=== PATIENT | male | born 1935 | race Caucasian/White ===

== ENCOUNTER 2018-02-26 10:53 | Inpatient (IN) ==
[2018-02-26] MEDS ORDERED: Sod Chloride 0.9% Inj 1,000 ML IV.SIG ONE (11:16)
--- NOTE | 2018-02-26 11:29 | ED ---
HPI General Chief complaint: Fall Stated complaint: Weakness Time Seen by Provider: 02/26/18 11:09 History of Present Illness HPI narrative: 82-year-old male with a history of hypertension, atrial fibrillation, hyperlipidemia is brought to the emergency department by EMS for evaluation of down for unknown amount of time. Per EMS report the patient was last seen by his neighbors 1 week ago therefore neighbors called when they were concerned that they did not see him. When EMS arrived today patient was found on the floor of his home covered in feces and urine. Per EMS report the patient was noted to be in A. fib with RVR with heart rate in the 160s. Patient was administered 1.5 L of normal saline and Cardizem 20 mg IV which brought his heart rate down to the 120s. The patient is awake alert and oriented. Patient states that he tripped and fell in his house and could not get up. He is not sure how long he has been down. He is complaining of pain in his hips and left knee. He is not sure if he is on any anticoagulation. He complains of being very thirsty and dehydrated. Denies any chest pain, shortness of breath, nausea, vomiting, numbness or tingling. [facility] No other complaints. Related Data Home Medications Medication Instructions Recorded Confirmed gabapentin 100 mg PO TID 02/26/18 02/26/18 warfarin 5 mg PO DAILY 02/26/18 02/26/18 Allergies Allergy/AdvReac Type Severity Reaction Status Date / Time metoclopramide [From Reglan] Allergy Intermediate Hives Verified 02/26/18 11:12 Review of Systems ROS: all other systems reviewed are negative [facility] Medical History Medical History A-fib (Acute) HBP (high blood pressure) (Acute) Respiration disorder (Acute) Social History Social History Substance History: No History of Abuse Smoking Status: Never smoker How Often Do You Have a Drink Containing Alcohol: Monthly or less Recent Travel in [facility] within the Last 8 Weeks: No Recent Out of Country Travel within the Last 8 Weeks: No Exam Narrative Exam Narrative: GENERAL: Elderly male patient in no acute distress appears dry. SKIN: Warm and dry. Abrasions on back. 10x5cm stage 2 sacral ulcer. Abrasions across left flank and abdomen that have some scab formation. HEAD: Normocephalic and atraumatic. EYES: No injection, drainage, or hyphema noted. PERRLA. EOMI. ENT: No nasal drainage noted. Oropharynx is clear. NECK: Supple and the trachea is midline. No obvious deformities or midline tenderness. CARDIOVASCULAR: Regular rate and rhythm. RESPIRATORY: Breath sounds are equal bilaterally with no accessory muscle use, wheezing, rhonchi, or crackles. GASTROINTESTINAL: Epigastric and periumbilical tenderness to palpation. Abdomen is soft and nondistended. MUSCULOSKELETAL: Tenderness to palpation to left knee, decreased range of motion in the left leg due to pain in the left knee and hip. Decreased range of motion in the right leg due to pain in hip. No obvious deformities, swelling , cyanosis, or ecchymosis is present throughout the upper and lower extremities. Patient has full range of motion without any signs of neurovascular compromise. Distal pulses are 2+ throughout. BACK: Nontender without any obvious deformities, bony point tenderness, or crepitus noted throughout the thoracic and lumbar vertebrae. NEUROLOGICAL: Awake, alert, and oriented. Normal speech. Cranial nerves are grossly intact. Procedures Hemaprompt Stool Procedural Steps Taken: specimen placed in appropriate test area, developer placed on specimen and control areas and controls appropriately positive and negative Hemaprompt Stool Result: negative Course Initial Documented Vital Signs Temperature 98.2 F 02/26/18 11:12 Pulse Rate 123 H 02/26/18 11:12 Respiratory Rate 24 02/26/18 11:12 Blood Pressure 165/92 H 02/26/18 11:12 Pulse Oximetry 96 02/26/18 11:12 Last Documented Vital Signs Temperature 98.0 F 02/26/18 11:45 Pulse Rate 125 H 02/26/18 11:45 Respiratory Rate 22 02/26/18 11:45 Blood Pressure 181/92 H 02/26/18 11:45 Pulse Oximetry 98 02/26/18 11:45 Medical Decision Making MDM Narrative Medical decision making narrative: 82-year-old male brought to the emergency department by EMS for evaluation of found down for unknown amount of time. Patient is afebrile. Blood pressure is stable. Patient is tachycardic with heart rate between 120s-140s A. fib with RVR. EKG shows A. fib with RVR, no acute ST elevations or depressions. Patient already administered 1.5 L of normal saline and Cardizem 20 mg IV by EMS. Another liter of fluid ordered as well as Cardizem 20 mg IV bolus with Cardizem drip. Patient is placed on cardiac telemetry and pulse oximetry monitoring. CT imaging ordered of head, cervical spine, thoracic spine, lumbar spine and abdomen and pelvis. X-ray imaging ordered of the hips and left knee. Campbell catheter placed to monitor urinary output as well as for wound care of sacral ulcer. CBC shows elevated white blood cell count of 23.1, otherwise unremarkable. Coags show INR is 1.3. CMP shows dehydration, creatinine 1.36, BUN 69, GFR 50. Lactic acid is 2.1. CPK is elevated at 931. Troponin is slightly elevated at 0.04 and CK-MB is also elevated. Likely due to dehydration. Urinalysis shows rare bacteria, otherwise unremarkable. Chest x-ray negative. Bilateral hip x-rays are negative for any acute abnormalities. Left knee x-ray is negative for any acute abnormalities. Head CT is negative for any acute abnormalities, senescent changes with moderate periventricular ischemic white matter demyelination noted. CT of the cervical spine shows multilevel degenerative changes but no acute abnormalities. CT of the thoracic spine shows kyphosis, degenerative changes and old compression deformities at T7-L1. CT of the abdomen and pelvis is negative for traumatic injury, there is a subcentimeter focal hypodensity in the anterior inferior spleen which does not have the typical appearance for acute splenic injury but is too small to fully characterize. Remote left inferior pubic ramus fracture. Patient has remained stable while here in the emergency department. His heart rate has improved to 90s, blood pressure is stable. Patient is administered Zosyn and vancomycin IV to cover for sepsis with skin source likely from sacral ulcer. Patient will be admitted for sepsis, A. fib with RVR, rhabdomyolysis and sacral ulcer. I spoke with Dr. Rockwell [facility] who accepts patient for admission. Medical Screen Exam Complete: Yes Emergency Medical Condition: Yes Differential Diagnosis Differential Diagnosis: Dehydration versus rhabdomyolysis versus acute kidney injury versus electrolyte abnormality versus atrial fibrillation with RVR versus sepsis versus UTI versus fracture Lab Data Result diagrams: 02/26/18 11:40 02/26/18 11:40 Lab Results 02/26/18 02/26/18 02/26/18 Range/Units 11:40 11:40 11:40 WBC 23.1 H (4.0-11.0) th/mm3 RBC 4.76 (4.50-5.90) mil/mm3 Hgb 15.4 (13.0-17.0) gm/dL Hct 46.0 (39.0-51.0) % MCV 96.5 (80.0-100.0) fL MCH 32.3 (27.0-34.0) pg MCHC 33.4 (32.0-36.0) % RDW 13.9 (11.6-17.2) % Plt Count 229 (150-450) th/mm3 MPV 8.5 (7.0-11.0) fL Prelim Diff (Auto) Slide review pending Neut % (Auto) 89.5 H (16.0-70.0) % Lymph % (Auto) 3.8 L (9.0-44.0) % Bradford % (Auto) 6.5 (0.0-8.0) % Eos % (Auto) 0.0 (0.0-4.0) % Baso % (Auto) 0.2 (0.0-2.0) % Neut # (Auto) 20.7 H (1.8-7.7) th/mm3 Lymph # (Auto) 0.9 L (1.0-4.8) th/mm3 Bradford # (Auto) 1.5 H (0.0-0.9) th/mm3 Eos # (Auto) 0.0 (0.0-0.4) th/mm3 Baso # (Auto) 0.0 (0.0-0.2) th/mm3 WBC Differential Manual diff final Seg Neuts % (Manual) 83 H (16-70) % Band Neuts % (Manual) 7 H (0-6) % Lymphocytes % (Manual) 5 L (9-44) % Monocytes % (Manual) 4 (0-8) % Myelocytes % (Man) 1 H (0-0) % Abs Neuts (Manual) 21.0 H (1.8-7.7) th/mm3 Differential Comment . Platelet Estimate Normal (Normal) Platelet Morphology Normal (Normal) RBC Morphology Normal (Normal) PT (9.8-11.6) sec INR Ratio APTT (24.3-30.1) sec Sodium 152 H (136-145) meq/L Potassium 5.1 (3.5-5.1) meq/L Chloride 117 H (98-107) meq/L Carbon Dioxide 23.8 (21.0-32.0) meq/L Anion Gap 11 (5-15) meq/L BUN 69 H (7-18) mg/dL Creatinine 1.36 H (0.60-1.30) mg/dL Estimated GFR 50 L (>89) mL/min Random Glucose 135 H (74-106) mg/dL Lactic Acid (0.4-2.0) mmol/L Calcium 8.0 L (8.5-10.1) mg/dL Total Bilirubin 0.9 (0.2-1.0) mg/dL AST 58 H (15-37) U/L ALT 47 (12-78) U/L Alkaline Phosphatase 89 (45-117) U/L Total Creatine Kinase 931 H (39-308) U/L CK-MB (CK-2) 18.4 H (0.5-3.6) ng/mL CK-MB (CK-2) % 2.0 (0.0-4.0) % Troponin I 0.04 (0.02-0.05) ng/mL Total Protein 6.4 (6.4-8.2) g/dL Albumin 2.5 L (3.4-5.0) g/dL Urine Color (Yellw/Straw) Urine Clarity (Clear) Urine pH (5.0-8.5) Ur Specific [place] (1.002-1.035) Urine Protein (Neg-Trace) mg/dL Urine Glucose (UA) (Negative) mg/dL Urine Ketones (Negative) mg/dL Urine Occult Blood (Negative) Urine Nitrate (Negative) Urine Bilirubin (Negative) Urine Urobilinogen (Less than 2) mg/dL Ur Leukocyte Esterase (Negative) Urine RBC (0-3) /hpf Urine Bacteria (None) /hpf Micro UA Comment Ur Microscopic Review Urine Culture Comments 02/26/18 02/26/18 02/26/18 Range/Units 11:40 11:40 11:40 WBC (4.0-11.0) th/mm3 RBC (4.50-5.90) mil/mm3 Hgb (13.0-17.0) gm/dL Hct (39.0-51.0) % MCV (80.0-100.0) fL MCH (27.0-34.0) pg MCHC (32.0-36.0) % RDW (11.6-17.2) % Plt Count (150-450) th/mm3 MPV (7.0-11.0) fL Prelim Diff (Auto) Neut % (Auto) (16.0-70.0) % Lymph % (Auto) (9.0-44.0) % Bradford % (Auto) (0.0-8.0) % Eos % (Auto) (0.0-4.0) % Baso % (Auto) (0.0-2.0) % Neut # (Auto) (1.8-7.7) th/mm3 Lymph # (Auto) (1.0-4.8) th/mm3 Bradford # (Auto) (0.0-0.9) th/mm3 Eos # (Auto) (0.0-0.4) th/mm3 Baso # (Auto) (0.0-0.2) th/mm3 WBC Differential Seg Neuts % (Manual) (16-70) % Band Neuts % (Manual) (0-6) % Lymphocytes % (Manual) (9-44) % Monocytes % (Manual) (0-8) % Myelocytes % (Man) (0-0) % Abs Neuts (Manual) (1.8-7.7) th/mm3 Differential Comment Platelet Estimate (Normal) Platelet Morphology (Normal) RBC Morphology (Normal) PT 13.0 H (9.8-11.6) sec INR 1.3 Ratio APTT 20.5 L (24.3-30.1) sec Sodium (136-145) meq/L Potassium (3.5-5.1) meq/L Chloride (98-107) meq/L Carbon Dioxide (21.0-32.0) meq/L Anion Gap (5-15) meq/L BUN (7-18) mg/dL Creatinine (0.60-1.30) mg/dL Estimated GFR (>89) mL/min Random Glucose (74-106) mg/dL Lactic Acid 2.1 H (0.4-2.0) mmol/L Calcium (8.5-10.1) mg/dL Total Bilirubin (0.2-1.0) mg/dL AST (15-37) U/L ALT (12-78) U/L Alkaline Phosphatase (45-117) U/L Total Creatine Kinase (39-308) U/L CK-MB (CK-2) (0.5-3.6) ng/mL CK-MB (CK-2) % (0.0-4.0) % Troponin I (0.02-0.05) ng/mL Total Protein (6.4-8.2) g/dL Albumin (3.4-5.0) g/dL Urine Color Yellow (Yellw/Straw) Urine Clarity Clear (Clear) Urine pH 6.0 (5.0-8.5) Ur Specific [place] 1.010 (1.002-1.035) Urine Protein Negative (Neg-Trace) mg/dL Urine Glucose (UA) Negative (Negative) mg/dL Urine Ketones Negative (Negative) mg/dL Urine Occult Blood Negative (Negative) Urine Nitrate Negative (Negative) Urine Bilirubin Negative (Negative) Urine Urobilinogen Less than 2 (Less than 2) mg/dL Ur Leukocyte Esterase Negative (Negative) Urine RBC 1 (0-3) /hpf Urine Bacteria Rare H (None) /hpf Micro UA Comment Culture not ind Ur Microscopic Review Not Reportable Urine Culture Comments Culture not ind Imaging Data Radiologist's impression: Cervical Spine CT 02/26/18 11:16 CONCLUSION: 1. Multilevel degenerative spondylosis of the cervical spine with exaggerated kyphosis and multilevel prominent facet hypertrophy. 2. Sagittal alignment is maintained however there is increased anterior disc space at C4-5, C5-6 and C6-7 which may be related to increased motion due to degenerative endplate osteophytes at C3-4 and facet arthrosis. 3. No acute fracture. Chest X-Ray 02/26/18 11:16 CONCLUSION: 1. Senescent changes without acute abnormality. Head CT 02/26/18 11:16 CONCLUSION: 1. Senescent changes with moderate periventricular ischemic white matter demyelination. 2. No acute intracranial abnormality. . Abdomen/Pelvis CT 02/26/18 11:22 CONCLUSION: 1. No CT evidence for acute traumatic injury in the abdomen or pelvis. 2. Subcentimeter focal hypodensity in the anterior inferior spleen which does not have the typical appearance for acute splenic injury but is too small to fully characterize. 3. Remote left inferior pubic ramus fracture with compression screw fixation of the right femoral neck and stable moderate superior endplate fracture of T12. Hip X-Ray 02/26/18 11:22 CONCLUSION: 1. No acute fracture or dislocation. Hip X-Ray 02/26/18 11:22 CONCLUSION: 1. No acute fracture or dislocation. 2. Intact fixation hardware, as above. Knee X-Ray 02/26/18 11:22 CONCLUSION: 1. No acute fracture. Lumbar Spine CT 02/26/18 11:22 CONCLUSION: 1. No acute compression fracture or subluxation. 2. Moderate compression fracture at T12. 3. Osteopenia. Thoracic Spine CT 02/26/18 11:22 CONCLUSION: 1. Kyphosis and diffuse degenerative changes. 2. Old compression deformities at T7 and L1. 3. Osteopenia. Discharge Plan Discharge Disposition Patient Disposition: 30 Still Patient Discharge Details Diagnosis: Sepsis, Atrial fibrillation with RVR, Rhabdomyolysis, Decubitus ulcer of sacral area Physicians Team ED Provider: Jesus Reid ED Midlevel Provider: Anita Pacheco Primary Care Provider: UNKNOWN, Rxs /Orders / Referrals /Forms Prescriptions: No Action warfarin 5 mg Tablet 5 mg PO DAILY RF: 0 gabapentin 100 mg Capsule 100 mg PO TID RF: 0 Status ED Status: With Doctor
[2018-02-26 12:27] LABS: Baso % (Auto) 0.2 % (0.0-2.0); Hemoglobin 15.4 gm/dL (13.0-17.0); Lymph # (Auto) 0.9 th/mm3 (1.0-4.8); Lymph % (Auto) 3.8 % (9.0-44.0); Mean Corpuscular HGB Conc 33.4 % (32.0-36.0); Mean Corpuscular Hemoglobin 32.3 pg (27.0-34.0); Mean Corpuscular Volume 96.5 fL (80.0-100.0); Mean Platelet Volume 8.5 fL (7.0-11.0); Mono # (Auto) 1.5 th/mm3 (0.0-0.9); Mono % (Auto) 6.5 % (0.0-8.0); Neut # (Auto) 20.7 th/mm3 (1.8-7.7); Neut % (Auto) 89.5 % (16.0-70.0); Platelet Count 229 th/mm3 (150-450); Red Blood Count 4.76 mil/mm3 (4.50-5.90); Red Cell Distribution Width 13.9 % (11.6-17.2); White Blood Count 23.1 th/mm3 (4.0-11.0)
[2018-02-26 12:35] LABS: Activated Partial Thrombo Time 20.5 sec (24.3-30.1); INR 1.3 Ratio
[2018-02-26] MEDS: dilTIAZem Inj 125 MG in Sodium Chlor 0.9% Inj 100 ML IV.CONT PRN ×2 (12:38→22:26)
[2018-02-26 12:40] LABS: Alkaline Phosphatase 89 U/L (45-117); Total Protein 6.4 g/dL (6.4-8.2); Troponin I 0.04 ng/mL (0.02-0.05)
[2018-02-26 12:41] LABS: Alanine Aminotransferase 47 U/L (12-78); Albumin 2.5 g/dL (3.4-5.0); Anion Gap 11 meq/L (5-15); Aspartate Aminotransferase 58 U/L (15-37); Blood Urea Nitrogen 69 mg/dL (7-18); Carbon Dioxide 23.8 meq/L (21.0-32.0); Chloride 117 meq/L (98-107); Glomerular Filtration Rate 50 mL/min (>89); Glucose,Random 135 mg/dL (74-106); Sodium 152 meq/L (136-145)
[2018-02-26 12:42] LABS: Potassium 5.1 meq/L (3.5-5.1)
--- NOTE | 2018-02-26 12:55 | XR ---
EXAM DATE: 02/26/2018 11:22 AM EDT AGE/SEX: 82 years / Male INDICATIONS: Fall, left hip pain. CLINICAL DATA: This is the patient's initial encounter. Patient reports that signs and symptoms have been present for 1 day and indicates a pain score of 3/10. MEDICAL/SURGICAL HISTORY: None. . right hip COMPARISON: [facility], CT ABDOMEN AND PELVIS W/O CONTRAST, 11/23/2014. . FINDINGS: Right hip femoral compression screw and intramedullary esteban fixation. Visualized portions of the hardw are appears grossly intact. Bony structures are intact and in normal alignment. Joints are intact wi thout dislocation or significant arthropathy. Osseous density is normal. Soft tissues are unremarka ble. No radiopaque foreign bodies seen. CONCLUSION: 1. No acute fracture or dislocation. Electronically signed by: Duran Correa MD 02/26/2018 12:54 PM EDT
--- NOTE | 2018-02-26 12:56 | XR ---
EXAM DATE: 02/26/2018 11:22 AM EDT AGE/SEX: 82 years / Male INDICATIONS: Fall, right hip pain. CLINICAL DATA: This is the patient's initial encounter. Patient reports that signs and symptoms have been present for 1 day and indicates a pain score of 2/10. MEDICAL/SURGICAL HISTORY: None. . right hip COMPARISON: [facility], CT ABDOMEN AND PELVIS W/O CONTRAST, 11/23/2014. . FINDINGS: Right femoral intramedullary esteban and compression screw fixation with bony remodeling in the intertroc hanteric region. There is also [id number] degenerative osteoarthritis about the hip joint. Osse ous structures otherwise appear intact without acute bony fracture. Hardware appears intact. Soft tis sues are unremarkable. No radiopaque foreign bodies. CONCLUSION: 1. No acute fracture or dislocation. 2. Intact fixation hardware, as above. Electronically signed by: Duran Correa MD 02/26/2018 12:55 PM EDT
--- NOTE | 2018-02-26 12:57 | XR ---
EXAM DATE: 02/26/2018 11:16 AM EDT AGE/SEX: 82 years / Male INDICATIONS: Fall, short of breath. CLINICAL DATA: This is the patient's initial encounter. Patient reports that signs and symptoms have been present for 1 day and indicates a pain score of 0/10. MEDICAL/SURGICAL HISTORY: None. None. COMPARISON: . FINDINGS: Mild diffuse interstitial prominence and senescent changes. Cardiac silhouette is mildly enlarged. Os seous structures are grossly intact. CONCLUSION: 1. Senescent changes without acute abnormality. Electronically signed by: Duran Correa MD 02/26/2018 12:56 PM EDT
--- NOTE | 2018-02-26 12:58 | XR ---
EXAM DATE: 02/26/2018 11:22 AM EDT AGE/SEX: 82 years / Male INDICATIONS: Fall, left knee pain. CLINICAL DATA: This is the patient's initial encounter. Patient reports that signs and symptoms have been present for 1 day and indicates a pain score of 3/10. MEDICAL/SURGICAL HISTORY: None. . right hip COMPARISON: No prior exams available for comparison. FINDINGS: Bony structures are intact and in normal alignment. Joints are intact without dislocation or signific ant arthropathy. Osseous density is normal. Soft tissues are unremarkable. Arterial calcifications. No radiopaque foreign bodies seen. CONCLUSION: 1. No acute fracture. Electronically signed by: Duran Correa MD 02/26/2018 12:57 PM EDT
[2018-02-26 12:59] LABS: Bacteria,Urine Rare /hpf; Bilirubin,Urine Negative (Negative); Clarity,Urine Clear (Clear); Color,Urine Yellow (Yellw/Straw); Glucose,Urine (UA) Negative (Negative); Leukocyte Esterase,Urine Negative (Negative); Nitrite,Urine Negative (Negative)
[2018-02-26 13:01] LABS: Creatine Kinase MB 18.4 ng/mL (0.5-3.6)
[2018-02-26 13:19] LABS: Lymphocytes 5 % (9-44); Monocytes 4 % (0-8); Myelocytes 1 % (0-0); Platelet Estimate Normal (Normal); Platelet Morphology Normal (Normal); RBC Morphology Normal (Normal)
[2018-02-26] MEDS ORDERED: Vancomycin Inj 1,000 MG in Sodium Chlor 0.9% Inj 250 ML IV.SIG STA (13:48)
[2018-02-26] MEDS ORDERED: Piperacil/Tazo 4.5 GM Premix 4.5 GM/100 ML BAG IV.SIG STA (13:48)
--- NOTE | 2018-02-26 13:54 | CT ---
EXAM DATE: 02/26/2018 1:18 PM EDT AGE/SEX: 82 years / Male INDICATIONS: Trauma, patient fell found on floor. CLINICAL DATA: This is the patient's initial encounter. Patient reports that signs and symptoms have been present for 1 day and indicates a pain score of 4/10. MEDICAL/SURGICAL HISTORY: Hypertension. A-fib None. RADIATION DOSE: 56.66 CTDI (mGy) COMPARISON: No prior exams available for comparison. TECHNIQUE: CT of the head without contrast. Using automated exposure control and adjustment of the mA and/or kV according to patient size, radiation dose was kept as low as reasonably achievable to ob tain optimal diagnostic quality images. DICOM format image data is available electronically for revi ew and comparison. FINDINGS: Cerebrum: Moderate diffuse cerebral atrophy. The ventricles are normal for degree of atrophy. Modera te periventricular white matter hypodensities. No evidence of midline shift, mass lesion, hemorrhage or acute infarction. No extraaxial fluid collections are seen. Posterior Fossa: The cerebellum and brainstem are intact. The 4th ventricle is midline. The cerebe llopontine angle is unremarkable. Extracranial: The visualized portion of the orbits is intact. Skull: The calvaria is intact. No evidence of skull fracture. CONCLUSION: 1. Senescent changes with moderate periventricular ischemic white matter demyelination. 2. No acute intracranial abnormality. . Electronically signed by: Duran Correa MD 02/26/2018 1:53 PM EDT
--- NOTE | 2018-02-26 14:09 | CT ---
EXAM DATE: 02/26/2018 1:18 PM EDT AGE/SEX: 82 years / Male INDICATIONS: Trauma, patient fell found on floor. CLINICAL DATA: This is the patient's initial encounter. Patient reports that signs and symptoms have been present for 1 day and indicates a pain score of 7/10. MEDICAL/SURGICAL HISTORY: Hypertension. A-fib None. RADIATION DOSE: 18.76 CTDI (mGy) COMPARISON: [facility], XR SPINE LUMBAR (MIN 4 VIEWS), 11/23/2014. . TECHNIQUE: Contiguous axial images were obtained using helical multirow detector technique. The vol umetric data was post-processed with multiplanar reconstruction in oblique axial, sagittal, and coron al planes. Using automated exposure control and adjustment of the mA and/or kV according to patient s ize, radiation dose was kept as low as reasonably achievable to obtain optimal diagnostic quality elizabeth ges. DICOM format image data is available electronically for review and comparison. FINDINGS: OSSEOUS STRUCTURES: Vertebral body heights are maintained. Osseous structures are intact without evid ence for acute bony fracture. Dens is intact. ALIGNMENT: Exaggerated cervical lordosis with increased anterior disc space at C4-5, C5-6 and C6-7. T here are bridging endplate osteophytes at C3-4 right resulting in increased adjacent level motion. Sa gittal alignment is maintained when correcting for slight dextroscoliosis of the cervical spine. Ther e is a normal C1-2 relationship. Facets are normally aligned. SOFT TISSUES: There is no significant prevertebral soft tissue hematoma. No significant cervical pillo nopathy or gross mass. The thyroid appears unremarkable. Visualized lung apices are clear without pn eumothorax. ADDITIONAL FINDINGS: Multilevel degenerative spondylosis with advanced facet hypertrophy on the left at C4-5 and on the right at C6-7. Bony central canal is patent. Bony neural foramina are patent. CONCLUSION: 1. Multilevel degenerative spondylosis of the cervical spine with exaggerated kyphosis and multileve l prominent facet hypertrophy. 2. Sagittal alignment is maintained however there is increased anterior disc space at C4-5, C5-6 and C6-7 which may be related to increased motion due to degenerative endplate osteophytes at C3-4 and f acet arthrosis. 3. No acute fracture. Electronically signed by: Duran Correa MD 02/26/2018 2:08 PM EDT
--- NOTE | 2018-02-26 14:50 | CT ---
EXAM DATE: 02/26/2018 1:18 PM EDT AGE/SEX: 82 years / Male INDICATIONS: Trauma, patient fell found on floor. CLINICAL DATA: This is the patient's initial encounter. Patient reports that signs and symptoms have been present for 1 day and indicates a pain score of 7/10. MEDICAL/SURGICAL HISTORY: Hypertension. A-fib None. RADIATION DOSE: 35.62 CTDI (mGy) ; Combined studies COMPARISON: [facility] [place] CERVICAL SPINE W/O CONTRAST, 02/26/2018. . TECHNIQUE: Contiguous axial images were acquired using a multirow detector CT scanner without contra st. Multiplanar reconstruction in the sagittal and coronal planes was performed. Using automated exp osure control and adjustment of the mA and/or kV according to patient size, radiation dose was kept a s low as reasonably achievable to obtain optimal diagnostic quality images. DICOM format image data is available electronically for review and comparison. FINDINGS: Vertebrae: Kyphosis and degenerative changes thoracic spine. Severe compression deformity at T7 and moderate compression deformity at L1. Alignment: Normal. No subluxation. T1 - T2: Normal. T2 - T3: The thecal sac has a normal diameter. No evidence of disc bulge or protrusion. T3 - T4: The thecal sac has a normal diameter. No evidence of disc bulge or protrusion. T4 - T5: The thecal sac has a normal diameter. No evidence of disc bulge or protrusion. T5 - T6: The thecal sac has a normal diameter. No evidence of disc bulge or protrusion. T6 - T7: The thecal sac has a normal diameter. No evidence of disc bulge or protrusion. T7 - T8: The thecal sac has a normal diameter. No evidence of disc bulge or protrusion. T8 - T9: The thecal sac has a normal diameter. No evidence of disc bulge or protrusion. T9 - T10: The thecal sac has a normal diameter. No evidence of disc bulge or protrusion. T10 - T11: The thecal sac has a normal diameter. No evidence of disc bulge or protrusion. T11 - T12: The thecal sac has a normal diameter. No evidence of disc bulge or protrusion. T12 - L1: The thecal sac has a normal diameter. No evidence of disc bulge or protrusion. CONCLUSION: 1. Kyphosis and diffuse degenerative changes. 2. Old compression deformities at T7 and L1. 3. Osteopenia. Electronically signed by: Adam Reddy MD 02/26/2018 2:49 PM EDT
--- NOTE | 2018-02-26 14:51 | CT ---
EXAM DATE: 02/26/2018 1:18 PM EDT AGE/SEX: 82 years / Male INDICATIONS: Trauma, patient fell, found on floor. CLINICAL DATA: This is the patient's initial encounter. Patient reports that signs and symptoms have been present for 1 day and indicates a pain score of 7/10. MEDICAL/SURGICAL HISTORY: Hypertension. A-fib None. ORAL CONTRAST: No oral contrast ingested. RADIATION DOSE: 12.24 CTDI (mGy) COMPARISON: [facility], CT ABDOMEN AND PELVIS W/O CONTRAST, 11/23/2014. . TECHNIQUE: Multiple contiguous axial images were obtained through the abdomen and pelvis following b olus infusion of 68 ml Omnipaque 350 (iohexol) nonionic water-soluble contrast as a single exam dos e. No oral contrast ingested. Using automated exposure control and adjustment of the mA and/or kV ac cording to patient size, radiation dose was kept as low as reasonably achievable to obtain optimal di agnostic quality images. DICOM format image data is available electronically for review and comparis on. FINDINGS: LOWER LUNGS: Minimal bibasal atelectasis. LIVER: Homogeneous enhancement of the liver without focal mass or intrahepatic ductal dilatation. Mu ltiple gallstones in the gallbladder which otherwise appears unremarkable by CT. SPLEEN: Subcentimeter focal hypodensity in the anterior inferior spleen. This does not have the typi ezekiel appearance for acute splenic injury. PANCREAS: Unremarkable without mass or calcification. KIDNEYS: Kidneys demonstrate symmetrical enhancement without radiopaque renal calculi or hydronephro sis. Minimal perinephric stranding without perinephric fluid collection or evidence for acute renal i njury. ADRENAL GLANDS: Unremarkable. AORTA: Diffusely atherosclerotic but nonaneurysmal. BOWEL/MESENTERY: Small to moderate amount of stool in the rectum. Bowel otherwise appears grossly un remarkable. No dilated bowel loops to suggest obstruction. No free fluid or drainable fluid collectio ns. No free air or pneumatosis. ABDOMINAL WALL: Intact. RETROPERITONEUM: No evidence of adenopathy in the retrocrural, para-aortic, or deep pelvic regions. BLADDER: Decompressed secondary to Campbell catheter. REPRODUCTIVE: Nonspecific prostate enlargement. BONY STRUCTURES: Multilevel degenerative spondylosis of the lower lumbar spine healed left pubic ricky us fractures. Compression screw and intramedullary esteban fixation of the right femur with remodeling in the intertrochanteric region. Moderate superior endplate compression deformity of T12. This appears unchanged from prior exam. CONCLUSION: 1. No CT evidence for acute traumatic injury in the abdomen or pelvis. 2. Subcentimeter focal hypodensity in the anterior inferior spleen which does not have the typical a ppearance for acute splenic injury but is too small to fully characterize. 3. Remote left inferior pubic ramus fracture with compression screw fixation of the right femoral ne ck and stable moderate superior endplate fracture of T12. Electronically signed by: Duran Correa MD 02/26/2018 2:50 PM EDT
--- NOTE | 2018-02-26 15:13 | CT ---
EXAM DATE: 02/26/2018 11:22 AM EDT AGE/SEX: 82 years / Male INDICATIONS: Trauma, patient fell, found on floor. CLINICAL DATA: This is the patient's initial encounter. Patient reports that signs and symptoms have been present for 1 day and indicates a pain score of 7/10. MEDICAL/SURGICAL HISTORY: Hypertension. A-fib None. RADIATION DOSE: 36.62 CTDI (mGy) ; Combined studies COMPARISON: [facility] [place] W/O [place]AST, 02/26/2018. [facility] [place]ORACIC [place] W/O CONTR AST, 02/26/2018. . TECHNIQUE: Contiguous axial images were acquired with a multirow detector CT scanner without contras t. Multiplanar reconstructions in the sagittal and coronal plane were also performed. Using automate d exposure control and adjustment of the mA and/or kV according to patient size, radiation dose was k ept as low as reasonably achievable to obtain optimal diagnostic quality images. DICOM format image data is available electronically for review and comparison. FINDINGS: Vertebrae: Normal vertebral body height. There is compression fracture at T12 which is old. Schmorl node deformity along the inferior endplate at L2. Degenerative changes lower facets. Alignment: Normal. No subluxation. T12-L1: The thecal sac has a normal diameter. No evidence of disc bulge or protrusion. The neural foramina are patent bilaterally. L1-L2: The thecal sac has a normal diameter. No evidence of disc bulge or protrusion. The neural f oramina are patent bilaterally. L2-L3: The thecal sac has a normal diameter. No evidence of disc bulge or protrusion. The neural f oramina are patent bilaterally. L3-L4: The thecal sac has a normal diameter. No evidence of disc bulge or protrusion. The neural f oramina are patent bilaterally. L4-L5: The thecal sac has a normal diameter. No evidence of disc bulge or protrusion. The neural f oramina are patent bilaterally. L5-S1: The thecal sac has a normal diameter. No evidence of disc bulge or protrusion. The neural f oramina are patent bilaterally. CONCLUSION: 1. No acute compression fracture or subluxation. 2. Moderate compression fracture at T12. 3. Osteopenia. Electronically signed by: Adam Reddy MD 02/26/2018 3:12 PM EDT
[2018-02-26] MEDS ORDERED: Bisacodyl 10 MG Supp RECTAL PRN (15:33)
[2018-02-26] MEDS: Dextrose 5% in Water Inj 1,000 ML IV.CONT SCH (16:21)
--- NOTE | 2018-02-26 17:21 | P.HPIM ---
History of Present Illness Service: [facility] Hospitalist Primary Care Physician: UNKNOWN History of Present Illness: 82 Y/O male with a history of HTN, hypertension, mild dementia per family brought in by EMS after the patient was found down for unknown amount of time. Neighbors reports they have not seen him in a week. His daughter at bedside reports she talked to him about ten days ago. The patient reports that he remembered tripping and falling but he could not get up. He is unsure of the timing and his memory is vague but he thought he was down for three weeks. Patient was found in urine and feces. Currently he reports feeling drained with no energy. He has pain all over but no other specific complaint. Multiple imaging by ED staff did not reveal any acute fracture. He denies chest pain or shortness of breath. Patient was found to be in Afib with RVR. He has been given Cardizem IV by EMS and was started on a heparin drip in the ED. Inpatient Certification: I certify that the inpatient services were ordered in accordance with Medicare regulations governing the order. This includes certification that hospital inpatient services are reasonable and necessary and in the case of services not specified as inpatient-only under 42 CFR 419.22(n), that they are appropriately provided as inpatient services in accordance to with the 2-midnight benchmark under 43 CFR 412.3(e) Estimated Total Length of Stay (Days): 3 Plans for Post Hospital Care: Not yet determined Review of Systems All other systems reviewed negative except as stated in HPI PMFSH - History History Provided By: Patient - Medical History Medical History: Medical History (Last Reviewed 02/26/18 @ 22:06 by César Rockwell MD) A-fib HBP (high blood pressure) Respiration disorder - Surgical History Surgical History: Surgical History (Last Updated 02/26/18 @ 22:07 by César Rockwell MD) S/P skin cancer resection - Family History Family History: Family History (Last Updated 02/26/18 @ 22:07 by César Rockwell MD) Other Family history non-contributory - Tobacco History Smoking Status: Never smoker - Alcohol History How Often Do You Have a Drink Containing Alcohol: Monthly or less - Substance Use History Substance History: No History of Abuse - Travel History Recent Travel in the [place] Within the Last 8 Weeks: No Recent Travel Out of the Country Within the Last 8 Weeks: No - Immunization History Tetanus Immunization: >5 Years Medications and Allergies Active Medications: Active Medications Al Hydroxide/Mg Hydroxide (Milk Of Magnesia Liq) 30 ml PO Q12H PRN PRN Reason: Mild Constipation Bisacodyl (Dulcolax Supp) 10 mg RECTAL DAILY PRN PRN Reason: SEVERE CONSITIPATION Diltiazem HCl (Cardizem) 30 mg PO QID LORNA Diltiazem HCl 125 mg/ Sodium (Chloride) 125 mls @ 5 mls/hr IV.CONT TITRATE PRN ; Protocol PRN Reason: Per Protocol Last Titration: 02/26/18 14:17 Dose: 15 mg/hr, 15 mls/hr Dextrose (D5w Inj) 1,000 mls @ 100 mls/hr IV.CONT .Q10H LORNA Last Admin: 02/26/18 16:21 Dose: 100 mls/hr Lactulose (Lactulose Liq) 30 ml PO DAILY PRN PRN Reason: SEVERE CONSITIPATION Sennosides (Senokot) 17.2 mg PO Q12H PRN PRN Reason: Moderate Constipation Sodium Chloride (Ns Flush) 2 ml IV.FLUSH PRN PRN PRN Reason: FLUSH AFTER USING IV ACCESS Last Admin: 02/26/18 11:35 Dose: 2 ml Sodium Chloride (Ns Flush) 2 ml IV.FLUSH BID [facility] Allergies Allergy/AdvReac Type Severity Reaction Status Date / Time metoclopramide [From Reglan] Allergy Intermediate Hives Verified 02/26/18 11:12 Home Medications Medication Instructions Recorded Confirmed Type gabapentin 100 mg PO TID 02/26/18 02/26/18 History warfarin 5 mg PO DAILY 02/26/18 02/26/18 History Exam Vital signs: Vital Signs 02/26/18 11:12 02/26/18 11:17 02/26/18 11:45 Temperature 98.2 F 98.0 F Pulse Rate 123 H 122 H 125 H Respiratory Rate 24 22 Blood Pressure 165/92 H 181/92 H Pulse Oximetry 96 97 98 02/26/18 14:25 02/26/18 14:30 02/26/18 15:00 Temperature Pulse Rate 108 H 104 H 112 H Respiratory Rate 24 22 22 Blood Pressure 129/68 138/66 Pulse Oximetry 02/26/18 15:30 02/26/18 16:00 Temperature Pulse Rate 106 H 100 H Respiratory Rate 24 25 H Blood Pressure 145/79 H 135/75 Pulse Oximetry Intake & Output 02/25/18 02/26/18 02/26/18 18:59 06:59 18:59 Intake Total 1350 / 1350 Output Total 800 / 800 Balance 550 / 550 Weight 90.718 kg Intake: IV 1350 / 1350 Zosyn 4.5 GM Premix 4.5 gm In 100 / 100 100 ml @ 200 mls/hr IV.SIG STAT STA Rx#:[id number] NS Inj 1,000 ML @ Wide Open IV. 1000 / 1000 SIG BOLUS ONE Rx#:[id number] Vancomycin Inj 1,000 MG In NS 250 / 250 Inj 250 ML @ 250 mls/hr IV.SIG STAT STA Rx#:[id number] Output: Urine Amount (Catheter) 800 / 800 Indwelling Urethral Catheter 800 / 800 Narrative: GENERAL: Elderly and frail male. Profoundly weak. SKIN: Multiple areas of ecchymoses selam upper extremities. HEAD: Atraumatic. Normocephalic. EYES: Pupils equal and round. No scleral icterus. No injection or drainage. ENT: No nasal bleeding or discharge. Mucous membranes pink and moist. NECK: Trachea midline. No JVD. CARDIOVASCULAR: Rate in the 90's and irregular rhythm. RESPIRATORY: No accessory muscle use. Clear to auscultation. Breath sounds equal bilaterally. GASTROINTESTINAL: Abdomen soft, non-tender, nondistended. Hepatic and splenic margins not palpable. MUSCULOSKELETAL: Extremities without clubbing, cyanosis, or edema. No obvious deformities. NEUROLOGICAL: Awake and alert. No obvious cranial nerve deficits. Profound generalized weakness. PSYCHIATRIC: Appropriate mood and affect; insight and judgment normal. Results - Labs CBC & Chem 7: 02/26/18 11:40 02/26/18 11:40 Labs: Short CBC 02/26/18 Range/Units 11:40 WBC 23.1 H (4.0-11.0) th/mm3 Hgb 15.4 (13.0-17.0) gm/dL Hct 46.0 (39.0-51.0) % Plt Count 229 (150-450) th/mm3 [facility] 02/26/18 11:40 Sodium 152 H Potassium 5.1 Chloride 117 H Carbon Dioxide 23.8 BUN 69 H Creatinine 1.36 H Calcium 8.0 L Cardiac Enzymes 02/26/18 02/26/18 Range/Units 11:40 11:40 Total Creatine Kinase 931 H (39-308) U/L CK-MB (CK-2) 18.4 H (0.5-3.6) ng/mL Troponin I 0.04 (0.02-0.05) ng/mL Liver Function 02/26/18 Range/Units 11:40 Total Bilirubin 0.9 (0.2-1.0) mg/dL AST 58 H (15-37) U/L ALT 47 (12-78) U/L Alkaline Phosphatase 89 (45-117) U/L Albumin 2.5 L (3.4-5.0) g/dL Urine 02/26/18 Range/Units 11:40 Urine Color Yellow (Yellw/Straw) Urine Clarity Clear (Clear) Urine pH 6.0 (5.0-8.5) Ur Specific Goff 1.010 (1.002-1.035) Urine Protein Negative (Neg-Trace) mg/dL Urine Glucose (UA) Negative (Negative) mg/dL - Imaging Impressions Cervical Spine CT 02/26/18 11:16 CONCLUSION: 1. Multilevel degenerative spondylosis of the cervical spine with exaggerated kyphosis and multilevel prominent facet hypertrophy. 2. Sagittal alignment is maintained however there is increased anterior disc space at C4-5, C5-6 and C6-7 which may be related to increased motion due to degenerative endplate osteophytes at C3-4 and facet arthrosis. 3. No acute fracture. Chest X-Ray 02/26/18 11:16 CONCLUSION: 1. Senescent changes without acute abnormality. Head CT 02/26/18 11:16 CONCLUSION: 1. Senescent changes with moderate periventricular ischemic white matter demyelination. 2. No acute intracranial abnormality. . Abdomen/Pelvis CT 02/26/18 11:22 CONCLUSION: 1. No CT evidence for acute traumatic injury in the abdomen or pelvis. 2. Subcentimeter focal hypodensity in the anterior inferior spleen which does not have the typical appearance for acute splenic injury but is too small to fully characterize. 3. Remote left inferior pubic ramus fracture with compression screw fixation of the right femoral neck and stable moderate superior endplate fracture of T12. Hip X-Ray 02/26/18 11:22 CONCLUSION: 1. No acute fracture or dislocation. Hip X-Ray 02/26/18 11:22 CONCLUSION: 1. No acute fracture or dislocation. 2. Intact fixation hardware, as above. Knee X-Ray 02/26/18 11:22 CONCLUSION: 1. No acute fracture. Lumbar Spine CT 02/26/18 11:22 CONCLUSION: 1. No acute compression fracture or subluxation. 2. Moderate compression fracture at T12. 3. Osteopenia. Thoracic Spine CT 02/26/18 11:22 CONCLUSION: 1. Kyphosis and diffuse degenerative changes. 2. Old compression deformities at T7 and L1. 3. Osteopenia. Caprini VTE Risk Assessment Caprini VTE Risk Assessment: Moderate/High Risk (score >= 2) Caprini Risk Assessment Model: Point Value = 1 Point Value = 2 Point Value = 3 Point Value = 5 Age 41-60 Minor surgery BMI > 25 kg/m2 Swollen legs Varicose veins or History of unexplained or recurrent spontaneous Oral contraceptives or hormone replacement Sepsis (< 1 month) Serious lung disease, including pneumonia (< 1 month) Abnormal pulmonary function Acute myocardial infarction Congestive heart failure (< 1 month) History of inflammatory bowel disease Medical patient at bed rest Age 61-74 Arthroscopic surgery Major open surgery (> 45 min) Laparoscopic surgery (> 45 min) Malignancy Confined to bed (> 72 hours) Immobilizing plaster cast Central venous access Age >= 75 History of VTE Family history of VTE Factor V Leiden Prothrombin [id number] Lupus anticoagulant Anticardiolipin antibodies Elevated serum homocysteine Heparin-induced thrombocytopenia Other congenital or acquired thrombophilia Stroke (< 1 month) Elective arthroplasty Hip, pelvis, or leg fracture Acute spinal cord injury (< 1 month) Prophylaxis Regimen: Total Risk Factor Score Risk Level Prophylaxis Regimen 0-1 Low Early ambulation 2 Moderate Order ONE of the following: *Sequential Compression Device (SCD) *Heparin 5000 units SQ BID 3-4 Higher Order ONE of the following medications: *Heparin 5000 units SQ TID *Enoxaparin/Lovenox 40 mg SQ daily (WT < 150 kg, CrCl > 30 mL/min) *Enoxaparin/Lovenox 30 mg SQ daily (WT < 150 kg, CrCl > 10-29 mL/min) *Enoxaparin/Lovenox 30 mg SQ BID (WT < 150 kg, CrCl > 30 mL/min) AND/OR *Sequential Compression Device (SCD) 5 or more Highest Order ONE of the following medications: *Heparin 5000 units SQ TID (Preferred with Epidurals) *Enoxaparin/Lovenox 40 mg SQ daily (WT < 150 kg, CrCl > 30 mL/min) *Enoxaparin/Lovenox 30 mg SQ daily (WT < 150 kg, CrCl > 10-29 mL/min) *Enoxaparin/Lovenox 30 mg SQ BID (WT < 150 kg, CrCl > 30 mL/min) AND *Sequential Compression Device (SCD) Assessment and Plan - Plan 82 Y/O male found down for unknown amount of time. Patient reports he tripped, fell, and could not get up. Patient presented in Afib with RVR. Afib with RVR: - Continue Cardizem drip. Unclear to me if he was on any rate controlled medications outpatient. - Plan to transition to Oral once HR is better controlled - INR subtherapeutic. Restart Coumadin tomorrow. Acute renal failure: Secondary to dehydration. Continue IV hydration. Avoid nephrotoxins. Follow up BMP in AM. Rhabdomyolysis: - Secondary to fall, immobilization - IV hydration. Follow up labs Lactic acidosis and leukocytosis: He does have a sacral pressure ulcer however I suspect the labs findings are related to acute stress and injuries from the fall and prolonged immobilization Follow labs after hydration. He received antibiotics in the ED tonight, observe overnight and reevaluate need for antibiotics in AM. Sacral pressure ulcer: From immobilization at home - Frequent turning. Wound care consulted.
[2018-02-26] MEDS: Sodium Chloride 0.9% 2 ML Flush BID IV.FLUSH SCH (21:59)
[2018-02-26] MEDS: dilTIAZem 30 MG Tablet PO SCH ×2 (22:03)
[2018-02-26] MEDS ORDERED: Acetaminophen 325 MG Tablet PO PRN (22:28)
[2018-02-27] MEDS: Dextrose 5% in Water Inj 1,000 ML IV.CONT SCH ×3 (05:54→16:17)
[2018-02-27 06:05] LABS: Alanine Aminotransferase 39 U/L (12-78); Albumin 2.2 g/dL (3.4-5.0); Alkaline Phosphatase 71 U/L (45-117); Anion Gap 7 meq/L (5-15); Aspartate Aminotransferase 42 U/L (15-37); Blood Urea Nitrogen 41 mg/dL (7-18); Carbon Dioxide 26.4 meq/L (21.0-32.0); Chloride 115 meq/L (98-107); Creatine Kinase 560 U/L (39-308); Glomerular Filtration Rate 56 mL/min (>89); Glucose,Random 192 mg/dL (74-106); Potassium 3.8 meq/L (3.5-5.1); Sodium 148 meq/L (136-145); Total Protein 5.7 g/dL (6.4-8.2)
[2018-02-27 06:28] LABS: CKMB Percent 1.2 % (0.0-4.0); Creatine Kinase MB 6.7 ng/mL (0.5-3.6)
[2018-02-27] MEDS: dilTIAZem 30 MG Tablet PO SCH ×4 (08:56→20:47)
[2018-02-27] MEDS: Sodium Chloride 0.9% 2 ML Flush BID IV.FLUSH SCH ×2 (09:05→21:32)
[2018-02-27] MEDS ORDERED: Vancomycin Consult Pharmacy OTHER PRN (09:30)
[2018-02-27] MEDS ORDERED: Vancomycin Inj 1 GM/200 ML PIGGYBACK IV.SIG SCH (10:00)
--- NOTE | 2018-02-27 11:56 | P.PNWCN ---
Wound Care Nurse Consult Description: Received sacral pressure ulcer consult from Doctor Rockwell Communicated with: ROBERT Kim and Doctor Rockwell Recommendation: L side of Sacrum 1.Please cleanse wound to L side of the sacrum with normal saline only and pat dry. Apply Santyl ointment patricia thickness to wound bed and apply a fluffed moistened 4x4 gauze pad just to wound bed, avoiding intact skin. Salters intact skin surrounding wound with Cavilon skin barrier film spray. Allow to dry and cover with 6x6 bordered gauze. Change dressing daily 2.This wound may require plastics for faster debridement of necrotic tissue. 3. Please place patient on [facility] bed or if not available please order K 4 bed 4. Please turn patient from L side to R side every 2 hours limiting time spent on back to P.T. and with meals skin tears Cleanse open skin tears with normal saline and pat dry. Apply Versatel over open skin tears and secure with rolled gauze. May leave Versatel in place for up to 7 days and change rolled gauze as needed for saturation or dislodgement L lateral thigh wound Cleanse dry wound to L lateral thigh with normal saline and apply bead sized amount of hydrogel to wound bed and cover with bordered gauze. Change dressing every other day or as needed if saturated or dislodged. Bilateral heel Deep Tissue Injuries Please cleanse apply Cavilon skin barrier film BID and leave open to air. Obtain and apply heel raiser boots to patient.\ Opening Thoracic vertebra Deep Tissue Injury Please cleanse opened areas within Deep tissue injury with normal saline and pat dry thoroughly and gently. Apply Cavilon skin barrier film spray BID and leave open to air. Please turn patient from L side to R side every 2 hours to offload pressure from this and sacral areas. Wound/Pressure Injury - Wound L side of Sacrum Wound Staging: Unstageable Wound Assessment: Ongoing Wound Type: Pressure Injury Is This a Chronic Wound: No Requested from Provider a Wound Care Consult: Yes Length (cm): 9 (~9cm) Width (cm): 7 (~7cm) Depth (cm): 0 (eschar) Wound Bed Appearance: Necrotic Wound Bed Appearance: Wound bed presents with ~80% black moist eschar and ~20% red non granulation tissue. Surrounding Tissue Appearance: [place] Surrounding Tissue Temperature: Warm Drainage Amount: Minimal Drainage Odor: No Odor Dressing Status: Changed Cleansing Solution: Saline Wound Packing Type: Alginate (maxorb II) Cover Dressing: Bordered gauze Wound Dressing Change Date: 02/27/18 Wound Margin Description: Wound margins are well defined and open. Thoracic vertebra Wound Staging: DTI Wound Assessment: Ongoing Wound Type: Pressure Injury Is This a Chronic Wound: No Requested from Provider a Wound Care Consult: Yes Length (cm): 7.9 (cm) Width (cm): 4 (cm) Depth (cm): 0 (opening purple discoloration non blanchable) Wound Bed Appearance: Wound presents as an area of non blanchable purple discoloration over casey prominence that is opening to partial thickness between 4 and 6 o'clock Surrounding Tissue Appearance: Blanched/Dull, Erythema Surrounding Tissue Temperature: Warm Drainage Description: Serosanguinous Drainage Amount: Scant Drainage Odor: No Odor Dressing Status: Open to Air Cleansing Solution: Saline Topical: Cavilon skin barrier film spray Left lateral thigh Wound Assessment: Ongoing Wound Type: Traumatic Wound Is This a Chronic Wound: No Requested from Provider a Wound Care Consult: Yes Length (cm): 1 (~1cm) Width (cm): 5 (~5cm ) Depth (cm): 0.2 (~0.2cm) Wound Bed Appearance: Wound presents with 80% dark red dried sanguinous drainage and ~20% pink tissue that is also dry. Surrounding Tissue Appearance: Blanched/Dull, [place] Surrounding Tissue Temperature: Cool Drainage Description: Serosanguinous Drainage Amount: Scant Drainage Odor: No Odor Dressing Status: Open to Air Cleansing Solution: Saline Right Heel Wound Staging: DTI Wound Assessment: Ongoing Wound Type: Pressure Injury Is This a Chronic Wound: No Requested from Provider a Wound Care Consult: Yes (Wound care saw patient) Length (cm): 2.5 (cm) Width (cm): 2.6 (cm) Depth (cm): 0 (intact purple nonblanchable skin) Surrounding Tissue Appearance: [place] Surrounding Tissue Temperature: Cool Drainage Amount: None Dressing Status: Open to Air Left Heel Wound Staging: DTI Wound Type: Pressure Injury Is This a Chronic Wound: No Requested from Provider a Wound Care Consult: Yes (Patient was seen by wound care) Length (cm): 2 (cm) Width (cm): 2.5 (cm) Depth (cm): 0 (Intact non blanchable purple discoloration to intact skin) Surrounding Tissue Appearance: [place] Surrounding Tissue Temperature: Cool Drainage Amount: None Drainage Odor: No Odor Dressing Status: Open to Air Cleansing Solution: cavilon skin barrier film - Additional Information Patient seen on CIC for evaluation of possible pressure injury to sacral area.Patient was admitted to the hospital after being observed in home down on the ground for approximately one week.Patient is laying bed upon RN arrival.Patient was turned toward the L side with the assistance of conventional mortgage underwriter and Judy RN CIC, to reveal open unstageable pressure injury to the L side of the sacrum. Wound measurements and descriptions noted above. Wound was cleansed with normal saline and patted dry. Applied moistened fluffed gauze to wound bed and covered with bordered gauze. Assessed another pressure injury located over the thoracic vertebra area. This pressure injury presents as an Deep tissue injury that is opening to partial thickness skin loss between 4 and 6 o'clock. Sprayed Cavilon skin barrier film spray to DTI and left open to air Another wound was located on the L lateral thigh.Aound presents as a dry laceration.Wound measurements and descriptions are noted above. Wound was cleansed with normal saline and left open to air for now. RN to apply hydrogel with fluffed 2x2 gauze then covered with bordered gauze. Attention was then turned to the heels. Heels were observed with deep tissue injuries bilaterally. Applied cavilon skin barrier film and left bilateral heels open to air. Recommended heel raiser boots.
[2018-02-27] MEDS: Vancomycin Inj 1,500 MG in Sodium Chlor 0.9% Inj 500 ML IV.SIG SCH (13:26)
[2018-02-27] MEDS: dilTIAZem Inj 125 MG in Sodium Chlor 0.9% Inj 100 ML IV.CONT PRN (14:37)
--- NOTE | 2018-02-27 17:25 | P.PNIM ---
Subjective Interval history: Patient reports is feeling slightly better this morning. He is hungry and wants to drink. He was made n.p.o. due to concern for aspiration. Physical Exam Vital signs: Vital Signs 02/26/18 18:00 02/26/18 18:28 02/26/18 19:00 Temperature 97.9 F Pulse Rate 88 92 H 88 Respiratory Rate 30 H Blood Pressure 97/59 L Pulse Oximetry 100 02/26/18 20:00 02/26/18 21:00 02/26/18 22:00 Temperature 97.9 F Pulse Rate 88 88 86 Respiratory Rate 24 Blood Pressure 126/69 Pulse Oximetry 100 02/26/18 23:00 02/27/18 00:00 02/27/18 02:00 Temperature 97.6 F Pulse Rate 86 90 90 Respiratory Rate 20 Blood Pressure 128/79 Pulse Oximetry 99 02/27/18 03:00 02/27/18 04:00 02/27/18 05:00 Temperature 97.5 F L Pulse Rate 94 H 83 84 Respiratory Rate 20 Blood Pressure 111/60 Pulse Oximetry 99 02/27/18 05:43 02/27/18 07:00 02/27/18 08:00 Temperature 97.8 F Pulse Rate 84 70 94 H Respiratory Rate 18 Blood Pressure 100/65 Pulse Oximetry 99 02/27/18 09:00 02/27/18 10:00 02/27/18 11:00 Temperature Pulse Rate 94 H 92 H 86 Respiratory Rate Blood Pressure Pulse Oximetry 02/27/18 12:00 02/27/18 13:00 02/27/18 14:00 Temperature 97.8 F Pulse Rate 97 H 98 H 88 Respiratory Rate 18 Blood Pressure 132/74 Pulse Oximetry 94 L 02/27/18 15:00 02/27/18 15:44 02/27/18 16:00 Temperature 98.6 F Pulse Rate 89 99 H 90 Respiratory Rate 18 Blood Pressure 109/70 Pulse Oximetry 96 Intake & Output 02/26/18 02/27/18 02/27/18 18:59 06:59 18:59 Intake Total 1590 / 1590 365 / 365 1640 / 1640 Output Total 1400 / 1400 800 / 800 Balance 190 / 190 -435 / -435 1640 / 1640 Weight 90.718 kg 85.3 kg Intake: IV 1350 / 1350 125 / 125 1640 / 1640 D5W Inj 1,000 ML @ 100 mls/hr 0 / 0 1000 / 1000 IV.CONT .Q10H [facility] Rx#:[id number] Cardizem Inj 125 MG In NS Inj 125 / 125 125 / 125 100 ML @ 5 MG/HR 5 mls/hr IV. CONT TITRATE PRN Rx#:[id number] Zosyn 4.5 GM Premix 4.5 gm In 100 / 100 100 ml @ 200 mls/hr IV.SIG STAT STA Rx#:[id number] NS Inj 1,000 ML @ Wide Open IV. 1000 / 1000 SIG BOLUS ONE Rx#:[id number] Vancomycin Inj 1,000 MG In NS 250 / 250 Inj 250 ML @ 250 mls/hr IV.SIG STAT [facility] Rx#:[id number] Vancomycin Inj 1,500 MG In NS 515 / 515 Inj 500 ML @ 250 mls/hr IV.SIG Q24H [facility] Rx#:[id number] Oral 240 / 240 240 / 240 Output: Urine 800 / 800 Urine Amount (Catheter) 1400 / 1400 Indwelling Urethral Catheter 1400 / 1400 Narrative: GENERAL: Elderly and frail male. Profoundly weak. SKIN: Multiple areas of ecchymoses selam upper extremities. CARDIOVASCULAR: Rate in the 90's and irregular rhythm. RESPIRATORY: No accessory muscle use. Clear to auscultation. Breath sounds equal bilaterally. GASTROINTESTINAL: Abdomen soft, non-tender, nondistended. Hepatic and splenic margins not palpable. MUSCULOSKELETAL: Extremities without clubbing, cyanosis, or edema. No obvious deformities. NEUROLOGICAL: Awake and alert. No obvious cranial nerve deficits. Profound generalized weakness. PSYCHIATRIC: Appropriate mood and affect; insight and judgment normal. - Urinary Catheter Management Indwelling Urethral Catheter Cath placed during this visit: yes, but has since been removed by the nurse Reason for continuing: Decision to DC catheter Insertion date: 02/26/18 Insertion time: 11:33 Removal date: 02/27/18 Removal time: 12:30 Results - Labs CBC & Chem 7: 02/26/18 11:40 02/27/18 05:03 Laboratory Results - last 24 hr 02/26/18 02/26/18 02/27/18 11:52 17:40 05:03 Sodium 148 H Potassium 3.8 D Chloride 115 H Carbon Dioxide 26.4 Anion Gap 7 BUN 41 H Creatinine 1.24 Estimated GFR 56 L POC Glucose 149 H Random Glucose 192 H Lactic Acid 4.7 H* Calcium 8.0 L Total Bilirubin 0.9 AST 42 H ALT 39 Alkaline Phosphatase 71 Total Creatine Kinase 560 H CK-MB (CK-2) 6.7 H CK-MB (CK-2) % 1.2 Total Protein 5.7 L D Albumin 2.2 L Microbiology 02/26/18 11:25 Blood - Peripheral Aerobic Blood Culture - Preliminary No growth in 1 day 02/26/18 11:25 Blood - Peripheral Anaerobic Blood Culture - Preliminary gram variable rods 02/26/18 11:40 Blood - Peripheral Aerobic Blood Culture - Preliminary Staphylococcus coag negative 02/26/18 11:40 Blood - Peripheral Anaerobic Blood Culture - Preliminary No growth in 1 day Assessment and Plan - Plan 82 Y/O male found down for unknown amount of time. Patient reports he tripped, fell, and could not get up. Patient presented in Afib with RVR. Afib with RVR: -Transition to oral Cardizem. - Home dose Coumadin restarted. - INR subtherapeutic. Follow INR Acute renal failure: Secondary to dehydration. Improving. Continue IV hydration. Avoid nephrotoxins. Follow up BMP in AM. Rhabdomyolysis: - Secondary to fall, immobilization - IV hydration. Follow up labs Sepsis: Positive blood cultures, lactic acidosis and leukocytosis: He does have multiple pressure ulcers. - Continue vancomycin. Follow-up repeat blood cultures. Multiple pressure wounds including the left sacrum, left lateral thigh, bilateral heel, thoracic vertebrae deep tissue injury. -Appreciate wound care following. Frequent turning and wound dressing per wound care recommendations. Discharge Planning: Needs long-term placement.
--- NOTE | 2018-02-27 21:33 | ECG ---
Date Performed: 02/26/2018 Time Performed: 11:43:40 PTAGE: 82 years EKG: ATRIAL FIBRILLATION WITH RAPID VENTRICULAR RESPONSE ST DEVIATION AND MODERATE T-WAVE ABNORM ALITY, CONSIDER ANTEROLATERAL ISCHEMIA ABNORMAL ECG NO PREVIOUS TRACING DOCTOR: Xavi Ashley Interpretating Date/Time 02/27/2018 21:31:32
[2018-02-28] MEDS: Dextrose 5% in Water Inj 1,000 ML IV.CONT SCH ×4 (01:25→20:09)
[2018-02-28 06:32] LABS: INR 1.4 Ratio; Prothrombin Time 14.2 sec (9.8-11.6)
[2018-02-28] MEDS: dilTIAZem 30 MG Tablet PO SCH ×4 (08:36→20:09)
--- NOTE | 2018-02-28 10:16 | P.PNIM ---
Subjective Interval history: Patient reports he is feeling better today. Tolerating his diet. Physical Exam Vital signs: Vital Signs 02/27/18 11:00 02/27/18 12:00 02/27/18 13:00 Temperature 97.8 F Pulse Rate 86 97 H 98 H Respiratory Rate 18 Blood Pressure 132/74 Pulse Oximetry 94 L 02/27/18 14:00 02/27/18 15:00 02/27/18 15:44 Temperature 98.6 F Pulse Rate 88 89 99 H Respiratory Rate 18 Blood Pressure 109/70 Pulse Oximetry 96 02/27/18 16:00 02/27/18 17:00 02/27/18 18:00 Temperature Pulse Rate 90 95 H 100 H Respiratory Rate Blood Pressure Pulse Oximetry 02/27/18 19:00 02/27/18 20:00 02/27/18 21:00 Temperature 98.2 F Pulse Rate 95 H 94 H 84 Respiratory Rate 20 Blood Pressure 114/64 Pulse Oximetry 96 02/27/18 22:00 02/27/18 23:00 02/28/18 00:00 Temperature 98.2 F Pulse Rate 79 95 H 77 Respiratory Rate 20 Blood Pressure 136/79 Pulse Oximetry 94 L 02/28/18 01:00 02/28/18 02:00 02/28/18 03:00 Temperature Pulse Rate 86 86 94 H Respiratory Rate Blood Pressure Pulse Oximetry 02/28/18 04:00 02/28/18 05:00 02/28/18 06:00 Temperature 98.2 F Pulse Rate 92 H 77 92 H Respiratory Rate 20 Blood Pressure 118/74 Pulse Oximetry 95 02/28/18 07:00 02/28/18 08:00 Temperature 97.7 F Pulse Rate 87 94 H Respiratory Rate 22 Blood Pressure 125/75 Pulse Oximetry 94 L Intake & Output 02/27/18 02/28/18 02/28/18 18:59 06:59 18:59 Intake Total 2840 / 2840 2680 / 2680 Output Total 600 / 600 750 / 750 Balance 2240 / 2240 1930 / 1930 Weight 88 kg Intake: IV 1640 / 1640 1000 / 1000 D5W Inj 1,000 ML @ 100 mls/hr 1000 / 1000 1000 / 1000 IV.CONT .Q10H [facility] Rx#:[id number] Cardizem Inj 125 MG In NS Inj 125 / 125 100 ML @ 5 MG/HR 5 mls/hr IV. CONT TITRATE PRN Rx#:[id number] Vancomycin Inj 1,500 MG In NS 515 / 515 Inj 500 ML @ 250 mls/hr IV.SIG Q24H [facility] Rx#:[id number] Oral 1200 / 1200 1680 / 1680 Output: Urine 600 / 600 Urine Amount (Catheter) 750 / 750 Straight 750 / 750 Narrative: GENERAL: Elderly and frail male. Profoundly weak. SKIN: Multiple areas of ecchymoses selam upper extremities. CARDIOVASCULAR: Rate in the 90's and irregular rhythm. RESPIRATORY: No accessory muscle use. Clear to auscultation. Breath sounds equal bilaterally. GASTROINTESTINAL: Abdomen soft, non-tender, nondistended. Hepatic and splenic margins not palpable. MUSCULOSKELETAL: Extremities without clubbing, cyanosis, or edema. No obvious deformities. NEUROLOGICAL: Awake and alert. No obvious cranial nerve deficits. Profound generalized weakness. PSYCHIATRIC: Appropriate mood and affect; insight and judgment normal. - Urinary Catheter Management Indwelling Urethral Catheter Cath placed during this visit: yes, but has since been removed by the nurse Reason for continuing: Decision to DC catheter Insertion date: 02/26/18 Insertion time: 11:33 Removal date: 02/27/18 Removal time: 12:30 Straight Cath placed during this visit: no Results - Labs CBC & Chem 7: 02/26/18 11:40 02/27/18 05:03 Laboratory Results - last 24 hr 02/26/18 02/28/18 11:52 06:00 PT 14.2 H INR 1.4 POC Glucose 149 H Microbiology 02/26/18 11:40 Blood - Peripheral Aerobic Blood Culture - Preliminary Staphylococcus coag negative 02/26/18 11:40 Blood - Peripheral Anaerobic Blood Culture - Preliminary gram positive cocci 02/26/18 11:25 Blood - Peripheral Aerobic Blood Culture - Preliminary No growth in 1 day 02/26/18 11:25 Blood - Peripheral Anaerobic Blood Culture - Preliminary gram variable rods Assessment and Plan - Plan 82 Y/O male found down for unknown amount of time. Patient reports he tripped, fell, and could not get up. Patient presented in Afib with RVR. Afib with RVR: -Resolved. Rate controlled on oral Cardizem. - Home dose Coumadin restarted. - INR subtherapeutic. Follow INR Acute renal failure: Secondary to dehydration. Improving. Continue IV hydration. Avoid nephrotoxins. Follow up BMP in AM. Rhabdomyolysis: - Secondary to fall, immobilization -Improving. Continue IV hydration. Follow up labs Sepsis: Positive blood cultures, lactic acidosis and leukocytosis: He does have multiple pressure ulcers. - Continue vancomycin. Follow-up repeat blood cultures. Multiple pressure wounds including the left sacrum, left lateral thigh, bilateral heel, thoracic vertebrae deep tissue injury. -Discussed with wound care. Appreciate input. Frequent turning and wound dressing per wound care recommendations. Discharge Planning: Needs long-term placement when medically ready.
[2018-02-28] MEDS: Sodium Chloride 0.9% 2 ML Flush BID IV.FLUSH SCH ×2 (14:25→20:09)
[2018-02-28] MEDS: Vancomycin Inj 1,500 MG in Sodium Chlor 0.9% Inj 500 ML IV.SIG SCH (14:27)
[2018-03-01] MEDS: Dextrose 5% in Water Inj 1,000 ML IV.CONT SCH (05:22)
[2018-03-01 06:15] LABS: Hematocrit 37.9 % (39.0-51.0); Hemoglobin 12.6 gm/dL (13.0-17.0); Mean Corpuscular HGB Conc 33.2 % (32.0-36.0); Mean Corpuscular Hemoglobin 32.3 pg (27.0-34.0); Mean Corpuscular Volume 97.3 fL (80.0-100.0); Mean Platelet Volume 8.2 fL (7.0-11.0); Platelet Count 174 th/mm3 (150-450); Red Cell Distribution Width 13.5 % (11.6-17.2); White Blood Count 12.2 th/mm3 (4.0-11.0)
[2018-03-01 08:06] LABS: Anion Gap 8 meq/L (5-15); Blood Urea Nitrogen 13 mg/dL (7-18); Calcium 7.5 mg/dL (8.5-10.1); Carbon Dioxide 25.9 meq/L (21.0-32.0); Chloride 102 meq/L (98-107); Glomerular Filtration Rate Greater Than 89 mL/min (>89); Glucose,Random 105 mg/dL (74-106); Potassium 3.1 meq/L (3.5-5.1); Sodium 136 meq/L (136-145)
[2018-03-01 08:09] LABS: Creatine Kinase 325 U/L (39-308)
[2018-03-01 08:36] LABS: CKMB Percent 5.2 % (0.0-4.0)
[2018-03-01] MEDS: dilTIAZem 30 MG Tablet PO SCH ×4 (08:50→21:09)
[2018-03-01] MEDS: Sodium Chloride 0.9% 2 ML Flush BID IV.FLUSH SCH ×2 (08:50→21:09)
[2018-03-01] MEDS: Vancomycin Inj 1,500 MG in Sodium Chlor 0.9% Inj 500 ML IV.SIG SCH (12:25)
[2018-03-01 14:40] LABS: INR 2.1 Ratio
--- NOTE | 2018-03-01 15:17 | P.PNIM ---
Subjective Interval history: Patient reports he is feeling slightly better today. No chest pain. Still very weak. Physical Exam Vital signs: Vital Signs 02/28/18 16:00 02/28/18 17:00 02/28/18 18:00 Temperature 97.7 F Pulse Rate 84 82 84 Respiratory Rate 20 Blood Pressure 118/73 Pulse Oximetry 94 L 02/28/18 19:00 02/28/18 20:00 02/28/18 21:00 Temperature 97.5 F L Pulse Rate 92 H 82 84 Respiratory Rate 20 Blood Pressure 113/66 Pulse Oximetry 99 02/28/18 22:00 02/28/18 23:00 03/01/18 00:00 Temperature 97.8 F Pulse Rate 80 87 80 Respiratory Rate 20 Blood Pressure 118/77 Pulse Oximetry 97 03/01/18 01:00 03/01/18 02:00 03/01/18 03:00 Temperature Pulse Rate 80 88 85 Respiratory Rate Blood Pressure Pulse Oximetry 03/01/18 04:00 03/01/18 05:00 03/01/18 06:00 Temperature 97.5 F L Pulse Rate 90 84 102 H Respiratory Rate 18 Blood Pressure 129/72 Pulse Oximetry 96 03/01/18 07:00 03/01/18 08:00 03/01/18 09:00 Temperature 97.4 F L Pulse Rate 105 H 96 H 96 H Respiratory Rate 20 Blood Pressure 143/85 H Pulse Oximetry 94 L 03/01/18 10:00 03/01/18 11:00 03/01/18 12:00 Temperature 97.6 F Pulse Rate 96 H 93 H 88 Respiratory Rate 18 Blood Pressure 135/77 Pulse Oximetry 96 03/01/18 13:00 Temperature Pulse Rate 88 Respiratory Rate Blood Pressure Pulse Oximetry Intake & Output 02/28/18 03/01/18 03/01/18 18:59 06:59 18:59 Intake Total 1480 / 1480 1880 / 1880 Output Total 800 / 800 500 / 500 Balance 680 / 680 1380 / 1380 Weight 88.2 kg Intake: IV 1000 / 1000 1640 / 1640 D5W Inj 1,000 ML @ 100 mls/hr 1000 / 1000 1000 / 1000 IV.CONT .Q10H [facility] Rx#:[id number] Cardizem Inj 125 MG In NS Inj 125 / 125 100 ML @ 5 MG/HR 5 mls/hr IV. CONT TITRATE PRN Rx#:[id number] Vancomycin Inj 1,500 MG In NS 515 / 515 Inj 500 ML @ 250 mls/hr IV.SIG Q24H [facility] Rx#:[id number] Oral 480 / 480 240 / 240 Output: Urine Amount (Catheter) 800 / 800 500 / 500 Straight 800 / 800 500 / 500 Other: Date of Last Bowel Movement 02/28/18 02/28/18 # Bowel Movements 1 Narrative: GENERAL: Elderly and frail male. Profoundly weak. SKIN: Multiple areas of ecchymoses selam upper extremities. CARDIOVASCULAR: Rate in the 80's and irregular rhythm. RESPIRATORY: No accessory muscle use. Clear to auscultation. Breath sounds equal bilaterally. GASTROINTESTINAL: Abdomen soft, non-tender, nondistended. Hepatic and splenic margins not palpable. MUSCULOSKELETAL: Extremities without clubbing, cyanosis, or edema. No obvious deformities. NEUROLOGICAL: Awake and alert. No obvious cranial nerve deficits. Profound generalized weakness. PSYCHIATRIC: Appropriate mood and affect; insight and judgment normal. - Urinary Catheter Management Indwelling Urethral Catheter Cath placed during this visit: yes, but has since been removed by the nurse Reason for continuing: Decision to DC catheter Insertion date: 02/26/18 Insertion time: 11:33 Removal date: 02/27/18 Removal time: 12:30 Straight Cath placed during this visit: no Results - Labs CBC & Chem 7: 03/01/18 06:00 03/01/18 06:00 Laboratory Results - last 24 hr 03/01/18 03/01/18 03/01/18 06:00 06:00 14:20 WBC 12.2 H RBC 3.90 L Hgb 12.6 L Hct 37.9 L MCV 97.3 MCH 32.3 MCHC 33.2 RDW 13.5 Plt Count 174 MPV 8.2 PT 21.0 H INR 2.1 Sodium 136 Potassium 3.1 L Chloride 102 Carbon Dioxide 25.9 Anion Gap 8 BUN 13 Creatinine 0.60 Estimated GFR Greater than 89 Random Glucose 105 Calcium 7.5 L Total Creatine Kinase 325 H CK-MB (CK-2) 17.0 H CK-MB (CK-2) % 5.2 H* Microbiology 02/26/18 11:25 Blood - Peripheral Aerobic Blood Culture - Preliminary No growth in 3 days 02/26/18 11:25 Blood - Peripheral Anaerobic Blood Culture - Preliminary gram variable rods 02/26/18 11:40 Blood - Peripheral Aerobic Blood Culture - Preliminary Staphylococcus coag negative 02/26/18 11:40 Blood - Peripheral Anaerobic Blood Culture - Preliminary Staphylococcus coag negative 02/27/18 18:55 Blood - Peripheral Aerobic Blood Culture - Preliminary No growth in 2 days 10 18:55 Blood - Peripheral Anaerobic Blood Culture - Preliminary No growth in 2 days 02/27/18 18:49 Blood - Peripheral Aerobic Blood Culture - Preliminary No growth in 2 days 02/27/18 18:49 Blood - Peripheral Anaerobic Blood Culture - Preliminary No growth in 2 days Assessment and Plan - Plan 82 Y/O male found down for unknown amount of time. Patient reports he tripped, fell, and could not get up. Patient presented in Afib with RVR. Afib with RVR: -Resolved. Rate controlled on oral Cardizem. - Home dose Coumadin restarted. - INR therapeutic. Acute renal failure: Secondary to dehydration. Resolved with IV hydration. Avoid nephrotoxins. Follow up BMP in AM. Rhabdomyolysis: - Secondary to fall, immobilization -Improving. Continue IV hydration. Follow up labs Sepsis: Positive blood cultures, lactic acidosis and leukocytosis: He does have multiple pressure ulcers. - Continue vancomycin. Appears to be transient bacteremia. Follow-up repeat blood cultures. So far negative. Hypokalemia: - Replace and monitor. Check mag. Multiple pressure wounds including the left sacrum, left lateral thigh, bilateral heel, thoracic vertebrae deep tissue injury. -Discussed with wound care. Appreciate input. Frequent turning and wound dressing per wound care recommendations. Discharge Planning: Needs long-term placement when medically ready.
[2018-03-01] MEDS ORDERED: Potassium Chloride 25 MEQ Effervescent Tablet PO ONE (16:39)
[2018-03-01] MEDS ORDERED: KCL 20 mEq/Dextrose 5% Inj 1,000 ML IV.CONT SCH (18:00)
[2018-03-01] MEDS: Potassium Chloride Inj 20 MEQ in Dextrose 5% in Water Inj 1,000 ML IV.CONT SCH ×2 (18:17)
[2018-03-02 07:18] LABS: Hematocrit 39.6 % (39.0-51.0); Hemoglobin 13.1 gm/dL (13.0-17.0); Mean Corpuscular HGB Conc 33.1 % (32.0-36.0); Mean Corpuscular Hemoglobin 32.1 pg (27.0-34.0); Mean Corpuscular Volume 96.9 fL (80.0-100.0); Platelet Count 191 th/mm3 (150-450); Red Blood Count 4.09 mil/mm3 (4.50-5.90); Red Cell Distribution Width 13.3 % (11.6-17.2); White Blood Count 12.8 th/mm3 (4.0-11.0)
[2018-03-02 08:05] LABS: Anion Gap 10 meq/L (5-15); Blood Urea Nitrogen 13 mg/dL (7-18); Calcium 7.6 mg/dL (8.5-10.1); Chloride 101 meq/L (98-107); Glomerular Filtration Rate Greater Than 89 mL/min (>89); Glucose,Random 133 mg/dL (74-106); Magnesium 2.1 mg/dL (1.5-2.5); Potassium 3.2 meq/L (3.5-5.1); Sodium 133 meq/L (136-145)
[2018-03-02] MEDS: Sodium Chloride 0.9% 2 ML Flush BID IV.FLUSH SCH ×2 (08:55→21:55)
[2018-03-02] MEDS: dilTIAZem 30 MG Tablet PO SCH ×4 (08:55→21:54)
[2018-03-02] MEDS ORDERED: Potassium Bicarbonate 25 MEQ Effervescent Tablet PO ONE (09:35)
[2018-03-02] MEDS ORDERED: Pharmacy Ordered Lab Info OTHER ONE (11:45)
--- NOTE | 2018-03-02 11:58 | P.PNIM ---
Subjective Interval history: Patient reports he is feeling better overall today. Eager to go to rehab. Physical Exam Vital signs: Vital Signs 03/01/18 12:00 03/01/18 13:00 03/01/18 14:00 Temperature 97.6 F Pulse Rate 88 88 92 H Respiratory Rate 18 Blood Pressure 135/77 Pulse Oximetry 96 03/01/18 15:00 03/01/18 16:00 03/01/18 17:00 Temperature 97.6 F Pulse Rate 76 92 H 100 H Respiratory Rate 18 Blood Pressure 138/74 Pulse Oximetry 95 03/01/18 18:00 03/01/18 19:00 03/01/18 20:00 Temperature 97.4 F L Pulse Rate 100 H 94 H 104 H Respiratory Rate 20 Blood Pressure 127/79 Pulse Oximetry 96 03/01/18 21:00 03/01/18 22:00 03/01/18 23:00 Temperature Pulse Rate 94 H 98 H 80 Respiratory Rate Blood Pressure Pulse Oximetry 03/01/18 23:58 03/02/18 00:00 03/02/18 01:00 Temperature Pulse Rate 95 H 86 86 Respiratory Rate 20 Blood Pressure 118/68 Pulse Oximetry 98 03/02/18 02:00 03/02/18 03:00 03/02/18 04:00 Temperature Pulse Rate 92 H 87 94 H Respiratory Rate 18 Blood Pressure 121/72 Pulse Oximetry 96 03/02/18 05:00 03/02/18 06:00 03/02/18 08:00 Temperature 97.9 F Pulse Rate 98 H 96 H 97 H Respiratory Rate 16 Blood Pressure 125/76 Pulse Oximetry 96 Intake & Output 03/01/18 03/02/18 03/02/18 18:59 06:59 18:59 Intake Total 1435 / 1435 240 / 240 Output Total 1400 / 1400 600 / 600 Balance 35 / 35 -360 / -360 Weight 88 kg Intake: IV 515 / 515 Vancomycin Inj 1,500 MG In NS 515 / 515 Inj 500 ML @ 250 mls/hr IV.SIG Q24H [facility] Rx#:[id number] Oral 920 / 920 240 / 240 Output: Urine 1400 / 1400 Urine Amount (Catheter) 600 / 600 Straight 600 / 600 Other: Date of Last Bowel Movement 02/28/18 03/02/18 03/02/18 # Incontinent Bowel Movements 1 Narrative: GENERAL: Elderly and frail male. Profoundly weak. SKIN: Multiple areas of ecchymoses selam upper extremities. CARDIOVASCULAR: Rate in the 80's and irregular rhythm. RESPIRATORY: No accessory muscle use. Clear to auscultation. Breath sounds equal bilaterally. GASTROINTESTINAL: Abdomen soft, non-tender, nondistended. Hepatic and splenic margins not palpable. MUSCULOSKELETAL: Extremities without clubbing, cyanosis, or edema. No obvious deformities. NEUROLOGICAL: Awake and alert. No obvious cranial nerve deficits. Profound generalized weakness. PSYCHIATRIC: Appropriate mood and affect; insight and judgment normal. - Urinary Catheter Management Indwelling Urethral Catheter Cath placed during this visit: yes, but has since been removed by the nurse Reason for continuing: Decision to DC catheter Insertion date: 02/26/18 Insertion time: 11:33 Removal date: 02/27/18 Removal time: 12:30 Straight Cath placed during this visit: yes Reason for continuing: Acute urinary retention Insertion date: 03/01/18 Insertion time: 16:00 Results - Labs CBC & Chem 7: 03/02/18 06:23 03/02/18 06:23 Laboratory Results - last 24 hr 03/01/18 03/02/18 03/02/18 14:20 06:23 06:23 WBC 12.8 H RBC 4.09 L Hgb 13.1 Hct 39.6 MCV 96.9 MCH 32.1 MCHC 33.1 RDW 13.3 Plt Count 191 MPV 9.0 PT 21.0 H INR 2.1 Sodium 133 L Potassium 3.2 L Chloride 101 Carbon Dioxide 22.0 Anion Gap 10 BUN 13 Creatinine 0.69 Estimated GFR Greater than 89 Random Glucose 133 H Calcium 7.6 L Magnesium 2.1 Microbiology 02/27/18 18:55 Blood - Peripheral Aerobic Blood Culture - Preliminary No growth in 3 days 02/27/18 18:55 Blood - Peripheral Anaerobic Blood Culture - Preliminary No growth in 3 days 02/27/18 18:49 Blood - Peripheral Aerobic Blood Culture - Preliminary No growth in 3 days 02/27/18 18:49 Blood - Peripheral Anaerobic Blood Culture - Preliminary No growth in 3 days 02/26/18 11:25 Blood - Peripheral Aerobic Blood Culture - Preliminary No growth in 4 days 02/26/18 11:25 Blood - Peripheral Anaerobic Blood Culture - Final Staphylococcus epidermidis 02/26/18 11:40 Blood - Peripheral Aerobic Blood Culture - Final Staphylococcus epidermidis 02/26/18 11:40 Blood - Peripheral Anaerobic Blood Culture - Final Staphylococcus coag negative Assessment and Plan - Plan 82 Y/O male found down for unknown amount of time. Patient reports he tripped, fell, and could not get up. Patient presented in Afib with RVR. Afib with RVR: -Resolved. Rate controlled on oral Cardizem. - Home dose Coumadin restarted. - INR therapeutic. Acute renal failure: Secondary to dehydration. Resolved with IV hydration. Avoid nephrotoxins. Rhabdomyolysis: - Secondary to fall, immobilization -Improving. Continue IV hydration. Follow up labs Sepsis: Positive blood cultures, lactic acidosis and leukocytosis: He does have multiple pressure ulcers. -Blood cultures grew staph epidermidis, likely contaminant. Discontinue vancomycin. Repeat blood cultures so far negative. We will monitor him off of antibiotics. Hypokalemia: - Replace and monitor. Check mag. Multiple pressure wounds including the left sacrum, left lateral thigh, bilateral heel, thoracic vertebrae deep tissue injury. -Discussed with wound care. Appreciate input. Frequent turning and wound dressing per wound care recommendations. Discharge Planning: Plan to discharge to SNF tomorrow.
[2018-03-02] MEDS: Vancomycin Inj 1,500 MG in Sodium Chlor 0.9% Inj 500 ML IV.SIG SCH (12:51)
[2018-03-02] MEDS: Potassium Chloride Inj 20 MEQ in Dextrose 5% in Water Inj 1,000 ML IV.CONT SCH ×4 (18:59→21:55)
[2018-03-03] MEDS ORDERED: dilTIAZem CD 120 MG Capsule PO SCH (10:15)
--- NOTE | 2018-03-03 10:22 | P.DS ---
Date of admission: 02/26/18 15:40 Primary care physician: UNKNOWN Brief History from admission: 82 Y/O male with a history of HTN, hypertension, mild dementia per family brought in by EMS after the patient was found down for unknown amount of time. Neighbors reports they have not seen him in a week. His daughter at bedside reports she talked to him about ten days ago. The patient reports that he remembered tripping and falling but he could not get up. He is unsure of the timing and his memory is vague but he thought he was down for three weeks. Patient was found in urine and feces. Currently he reports feeling drained with no energy. He has pain all over but no other specific complaint. Multiple imaging by ED staff did not reveal any acute fracture. He denies chest pain or shortness of breath. Patient was found to be in Afib with RVR. He has been given Cardizem IV by EMS and was started on a heparin drip in the ED. Patient update on day of discharge: Patient reports he is feeling great and is looking forward to go to rehab today. No chest pain. Breathing comfortably. DS: Diagnosis - Discharge Diagnosis (1) Atrial fibrillation with RVR Status: Acute (2) Decubitus ulcer of sacral area Status: Acute (3) Rhabdomyolysis Status: Acute DS: Medications - Discharge Medications Prescriptions: diltiazem HCl [Cardizem CD] 120 mg PO DAILY #30 cap tamsulosin 0.4 mg PO DAILY #30 cap DS: Summary Hospital Course: 82 Y/O male found down for unknown amount of time. Patient reports he tripped, fell, and could not get up. Patient presented in Afib with RVR. Evaluation and treatment course detailed below: Afib with RVR: -Resolved. Rate controlled on oral Cardizem. - Home dose Coumadin restarted. - INR therapeutic. Acute renal failure: Secondary to dehydration. Resolved with IV hydration. Rhabdomyolysis: - Secondary to fall, immobilization -Resolved with IV hydration. Sepsis ruled out: Positive blood cultures, lactic acidosis and leukocytosis: He does have multiple pressure ulcers. -Blood cultures grew staph epidermidis, likely contaminant. Discontinue vancomycin. Repeat blood cultures so far negative. Patient monitored off antibiotics and he remains stable. Multiple pressure wounds including the left sacrum, left lateral thigh, bilateral heel, thoracic vertebrae deep tissue injury. -Discussed with wound care. Appreciate input. Frequent turning and wound dressing per wound care recommendations. Patient is to continue wound care at the nursing facility. Urinary retention: Patient has a known history of BPH. He failed voiding trial with Flomax. He will continue with Campbell until he is able to move more and can have another voiding trial outpatient with urology follow-up. - Time Spent with Patient Total time spent providing and/or coordinating discharge services: Greater than 30 minutes Exam Vital signs: Vital Signs 03/02/18 11:00 03/02/18 12:00 03/02/18 13:00 Temperature 98.0 F Pulse Rate 93 H 92 H 88 Respiratory Rate 18 Blood Pressure 139/80 Pulse Oximetry 97 03/02/18 14:00 03/02/18 15:00 03/02/18 16:00 Temperature 98.2 F Pulse Rate 88 90 92 H Respiratory Rate 18 Blood Pressure 130/80 Pulse Oximetry 98 03/02/18 17:00 03/02/18 18:00 03/02/18 19:00 Temperature Pulse Rate 88 94 H 104 H Respiratory Rate Blood Pressure Pulse Oximetry 03/02/18 20:00 03/02/18 21:00 03/02/18 22:00 Temperature 97.8 F Pulse Rate 90 88 92 H Respiratory Rate 18 Blood Pressure 135/87 Pulse Oximetry 96 03/02/18 23:00 03/02/18 23:56 03/03/18 00:00 Temperature 97.4 F L Pulse Rate 86 72 78 Respiratory Rate 18 18 Blood Pressure 138/83 Pulse Oximetry 96 03/03/18 01:00 03/03/18 02:00 03/03/18 03:00 Temperature Pulse Rate 90 80 90 Respiratory Rate Blood Pressure Pulse Oximetry 03/03/18 04:00 03/03/18 05:00 03/03/18 06:00 Temperature 97.7 F Pulse Rate 89 81 90 Respiratory Rate 18 Blood Pressure 125/90 Pulse Oximetry 96 Intake & Output 03/02/18 03/03/18 03/03/18 18:59 06:59 18:59 Intake Total 2004 1240 / 1240 Output Total 1000 / 1000 2400 / 2400 Balance 1005 / 1005 -1160 / -1160 Weight 88 kg Intake: IV 1525 / 1525 1000 / 1000 KCl Inj 20 MEQ In D5W Inj 1,000 1010 / 1010 1000 / 1000 ML @ 75 mls/hr IV.CONT . [id number] [facility] Rx#:[id number] Oral 480 / 480 240 / 240 Output: Urine 1000 / 1000 2400 / 2400 Other: Date of Last Bowel Movement 03/02/18 # Bowel Movements 1 0 Narrative: GENERAL: Elderly and frail male. Profoundly weak. SKIN: Multiple areas of ecchymoses selam upper extremities. CARDIOVASCULAR: Rate in the 80's and irregular rhythm. RESPIRATORY: No accessory muscle use. Clear to auscultation. Breath sounds equal bilaterally. GASTROINTESTINAL: Abdomen soft, non-tender, nondistended. Hepatic and splenic margins not palpable. MUSCULOSKELETAL: Extremities without clubbing, cyanosis, or edema. No obvious deformities. NEUROLOGICAL: Awake and alert. No obvious cranial nerve deficits. Profound generalized weakness. PSYCHIATRIC: Appropriate mood and affect; insight and judgment normal. Results Procedures completed during hospitalization: None Labs on day of discharge: Preliminary micro results at discharge 02/27/18 18:55 Aerobic Blood Culture - Preliminary Blood - Peripheral No growth in 3 days Anaerobic Blood Culture - Preliminary No growth in 3 days 02/27/18 18:49 Aerobic Blood Culture - Preliminary Blood - Peripheral No growth in 3 days Anaerobic Blood Culture - Preliminary No growth in 3 days 02/26/18 11:25 Aerobic Blood Culture - Preliminary Blood - Peripheral No growth in 4 days - Impressions ITS Impressions Cervical Spine CT 02/26/18 11:16 CONCLUSION: 1. Multilevel degenerative spondylosis of the cervical spine with exaggerated kyphosis and multilevel prominent facet hypertrophy. 2. Sagittal alignment is maintained however there is increased anterior disc space at C4-5, C5-6 and C6-7 which may be related to increased motion due to degenerative endplate osteophytes at C3-4 and facet arthrosis. 3. No acute fracture. Chest X-Ray 02/26/18 11:16 CONCLUSION: 1. Senescent changes without acute abnormality. Head CT 02/26/18 11:16 CONCLUSION: 1. Senescent changes with moderate periventricular ischemic white matter demyelination. 2. No acute intracranial abnormality. . Abdomen/Pelvis CT 02/26/18 11:22 CONCLUSION: 1. No CT evidence for acute traumatic injury in the abdomen or pelvis. 2. Subcentimeter focal hypodensity in the anterior inferior spleen which does not have the typical appearance for acute splenic injury but is too small to fully characterize. 3. Remote left inferior pubic ramus fracture with compression screw fixation of the right femoral neck and stable moderate superior endplate fracture of T12. Hip X-Ray 02/26/18 11:22 CONCLUSION: 1. No acute fracture or dislocation. 2. Intact fixation hardware, as above. Knee X-Ray 02/26/18 11:22 CONCLUSION: 1. No acute fracture. Lumbar Spine CT 02/26/18 11:22 CONCLUSION: 1. No acute compression fracture or subluxation. 2. Moderate compression fracture at T12. 3. Osteopenia. Thoracic Spine CT 02/26/18 11:22 CONCLUSION: 1. Kyphosis and diffuse degenerative changes. 2. Old compression deformities at T7 and L1. 3. Osteopenia. Discharge Plan - Discharge Disposition Patient Disposition: 03 Discharge to SNF - Discharge Condition Condition: Good - Discharge Order Discharge Orders: Discharge Order (Routine); Ordered 03/03/18 Ordered By: César Rockwell - Discharge Details Discharge Comment: Continue the same wound care at nursing facility. Continue Campbell until patient is more mobile then can follow outpatient with Urology for voiding trial. - Physicians Team Primary Care Provider: UNKNOWN, Attending Provider: César Rockwell Other Providers: [employer] ; [facility] [place]
[2018-03-03] MEDS ORDERED: Pharmacy Ordered Lab Info OTHER ONE (11:45)
[2018-03-03] MEDS: Sodium Chloride 0.9% 2 ML Flush BID IV.FLUSH SCH (12:26)
== END 2018-03-03 16:36 ==
LOC: NEPC 10:53 → NEDA 15:40 → HCIS 17:52
PROVIDERS: ADMIT Family Medicine; ATTEND Family Medicine